=== PATIENT | male | born 1945 | race Two or more races ===

== ENCOUNTER 2020-04-04 21:39 | Inpatient (IN) | payer MEDICARE, OTHER ==
[~2020-04-04] VITALS: Ht 165.1 cm; Wt 72.6 kg
[2020-04-04] MEDS ORDERED: OLAN5TAB6 (23:19)
[2020-04-04] MEDS ORDERED: TEMAZEPAM 7.5 MG CAPSULE PO PRN (23:30)
[2020-04-04] MEDS ORDERED: MAGNESIUM HYDROXIDE 30 ML UDC PO PRN (23:30)
[2020-04-04] MEDS ORDERED: BLOOD SUGAR DIAGNOSTIC 1 EACH STRIP IN ONE (23:30)
[2020-04-04] MEDS ORDERED: LORAZEPAM 0.5 MG TABLET PO PRN (23:30)
[2020-04-04] MEDS ORDERED: ACETAMINOPHEN 325 MG TABLET PO PRN (23:30)
[2020-04-04] MEDS ORDERED: MAG HYDROX/AL HYDROX/SIMETH 30 ML UDC PO PRN (23:30)
[2020-04-04 23:52] VITALS: BP 128/78
--- NOTE | 2020-04-05 01:06 | NUR ---
ADMISSION NOTES: ADMITTED THIS 74Y/O MALE PATIENT ADMIT FROM [facility], ADMITTED TO [facility], DTS , PER HOLD DUE TO WANDRING THE STREETS SAYS HE WAS LOOKING FOR AN APARTMENT, UNABLE TO PROVIDE FOR HIS FOOD GROUP HOME OR CLOTHING ,UPON FACE TO FACE ASSESSMENT PATIENT IS A&O X 2 PARANOID , HYPERVERBAL, DISORGNIZED ,DISHELVED ,EASILY GETS AGITATED, DENIES SI /HI AT THIS TIME, PT. IS POOR HISTORIAN, POOR INSIGHT ,POOR JUDGEMENT , PT. REFUSED TO SIGNS ADMISSION CONSENT PAPERS , DUE TO MENTAL STATUS / CONFUSED, BOTH MD AWARE AND NOTIFIED OF THE ADMISSION, BELONGINGS CONTRABAND WERE DONE ,PT. RIGHTS DISCUSS BY MEDICAL SCREENER , PROVIDE THE PT. WITH HANDBOOK, AND MEDICATIONS GUIDE, ENVIRONMENTAL SAFETY CHECK DONE, ENCOURAGED PT. VERBALIZED ANY FEELING CONCERN TO STAFF, ORIENT TO UNIT POLICY, NO ACUTE DISTRESS NOTED,VITAL SIGNS WNL ,DENIES ANY PAIN AT THIS TIME,WILL CONTINUE TO MONITOR FOR Q15 SAFETY AND BEHAVIOR.
--- NOTE | 2020-04-05 05:51 | NUR ---
RN NOTES: PT. NEXT OF KIN NONE GIVEN , PT. NON GIVEN MEDICAL / PSYCH HISTORY AND LIST OF MEDICAL HISTORY. UN ABLE TO OBTAIN .
--- NOTE | 2020-04-05 06:05 | NUR ---
[facility] RN NOTES: PT. RESTING IN HIS ROOM, CALM NOTED AT THIS TIME . NO S/S OF DISTRESS NOTED . PT. CALM COOPERTIVE,NO CHANGE OF CONDITION NOTED ,AND NO BEHAVIOR PROBLEMS NOTED, ALL CARE NEEDS MET ANTICIPATED. WILL CONTINUE TO MONITOR FOR SAFETY BEHAVIOR, AND ENDORSE TO AM SHIFT FOR CONTINUITY OF CARE.
[2020-04-05 08:00] VITALS: BP 143/82
[2020-04-05 08:35] LABS: BILIRUBIN,TOTAL 0.4 mg/dL (0.2-1.0); CALCIUM, SERUM 7.6 mg/dL (8.5-10.1); CREATININE 0.8 mg/dL (0.6-1.3); POTASSIUM 3.4 mmol/L (3.5-5.1); TOTAL PROTEIN, SERUM 6.4 g/dL (6.4-8.2)
[2020-04-05] MEDS: Z GUARD REMEDY 2 OZ OINT TP SCH (08:36)
[2020-04-05] MEDS ORDERED: OLAN5TAB3 PO (09:30)
[2020-04-05] MEDS ORDERED: POTASSIUM CHLORIDE 20 MEQ TAB.PRT.SR PO ONE (12:30)
[2020-04-05 14:00] LABS: CHOLESTEROL 135 mg/dL (<200); HDL CHOLESTEROL 36 mg/dL (40-60); TRIGLYCERIDES 99 mg/dL (30-150)
[2020-04-05 14:01] LABS: LDL 90 mg/dL (0-99)
[2020-04-05 16:00] VITALS: BP 121/62
--- NOTE | 2020-04-05 16:26 | NUR ---
Initial Discharge Plan: Pt is currently homeless. Pt states that he would like to be placed in a nursing facility. SW will work with the pt and the MD regarding appropriate discharge planning. SW will form a safe and proper discharge.
[2020-04-05 19:37] VITALS: BP 107/51
[2020-04-05] MEDS: OLANZAPINE 5 MG/TAB.RAPDIS PO SCH (21:15)
[2020-04-05 22:00] VITALS: BP 110/68
--- NOTE | 2020-04-06 06:12 | NUR ---
[facility]PS RN NOTES: PT. RESTING IN HIS ROOM, NO S/S OF DISTRESS NOTED . PT. CALM COOPERTIVE,NO CHANGE OF CONDITION NOTED ,AND NO BEHAVIOR PROBLEMS NOTED, ALL CARE NEEDS MET ANTICIPATED. WILL CONTINUE TO MONITOR FOR SAFETY BEHAVIOR, AND ENDORSE TO AM SHIFT FOR CONTINUITY OF CARE.
[2020-04-06 07:41] LABS: CALCIUM, SERUM 8.4 mg/dL (8.5-10.1); CREATININE 0.8 mg/dL (0.6-1.3); POTASSIUM 3.6 mmol/L (3.5-5.1)
[2020-04-06 08:00] VITALS: BP 110/62
[2020-04-06] MEDS: Z GUARD REMEDY 2 OZ OINT TP SCH (08:04)
--- NOTE | 2020-04-06 09:49 | NUR ---
WOUND CARE CONSULT: PT PRESENTS WITH RASH TO LOWER BUTTOCKS, PRESENT ON ADMISSION. RECOMMENDATIONS MADE FOR SKIN CARE AND PROTECTION. DISCUSSED WITH NURSING STAFF. WILL SEE PRN. IN AGREEMENT WITH PLAN OF CARE. CURRENT CHET SCORE IS 20.
--- NOTE | 2020-04-06 11:57 | NUR ---
Substance Abuse Intervention: JAROD conducted a substance abuse intervention with the pt due to his methamphetamine abuse.
[2020-04-06 16:00] VITALS: BP 144/78
[2020-04-06] MEDS: CLOTRIMAZOLE 1% 15 GM TUBE TP SCH (16:10)
[2020-04-06 20:05] VITALS: BP 130/72
[2020-04-06] MEDS: OLANZAPINE 5 MG/TAB.RAPDIS PO SCH (21:05)
[2020-04-07 08:00] VITALS: BP 157/99
[2020-04-07] MEDS: CLOTRIMAZOLE 1% 15 GM TUBE TP SCH ×2 (08:26→16:41)
[2020-04-07] MEDS: Z GUARD REMEDY 2 OZ OINT TP SCH (08:26)
[2020-04-07 16:00] VITALS: BP 145/91
[2020-04-07 20:10] VITALS: BP 141/79
[2020-04-07] MEDS: OLANZAPINE 5 MG/TAB.RAPDIS PO SCH (21:30)
[2020-04-08 08:00] VITALS: BP 137/69
[2020-04-08] MEDS: Z GUARD REMEDY 2 OZ OINT TP SCH (08:19)
[2020-04-08] MEDS: CLOTRIMAZOLE 1% 15 GM TUBE TP SCH ×2 (08:19→16:28)
--- NOTE | 2020-04-08 10:06 | NUR ---
SNF Referral: JAROD faxed a referral to [facility] with attention to Yla to the fax number: [phone].
--- NOTE | 2020-04-08 14:52 | NUR ---
SNF Contact: SW received a call from Inge ([phone]) from [facility] and she stated that the pt was accepted to their facility.
[2020-04-08 16:00] VITALS: BP 145/82
--- NOTE | 2020-04-08 19:15 | NUR ---
[facility] RN OPENING NOTES: RECEIVED PATIENT ASLEEP IN BED.
--- NOTE | 2020-04-08 19:30 | NUR ---
PATIENT IS AWAKE NOW, WALKING IN THE HALLWAY WITH STEADY GAIT, TALKING TO THE STAFF. NO S/S OF DISTRESS NOTED. NO COMPLAIN OF PAIN. PATIENT ASKED FOR SNACKS, GIVEN BY THE CHARGE NURSE. PATIENT IS ALERT AND ORIENTED X2-3. WILL CONTINUE TO MONITOR.
[2020-04-08 20:08] VITALS: BP 141/81
--- NOTE | 2020-04-08 20:08 | NUR ---
PATIENT WENT BACK TO BED. BED SIDERAILS UP X2 FOR SAFETY. EDUCATED PATIENT ON THE USE OF CALL FONTANEZ. BED IN LOCKED AND LOW POSITION.
[2020-04-08] MEDS: OLANZAPINE 5 MG/TAB.RAPDIS PO SCH (21:37)
--- NOTE | 2020-04-09 06:25 | NUR ---
CLOSING NOTES: PATIENT IS ASLEEP IN BED. NO S/S OF DISTRESS NOTED. BED IN LOWEST AND LOCKED POSITION.V/S WNL. PATIENT IS MED COMPLIANT.
[2020-04-09 08:00] VITALS: BP 155/89
[2020-04-09] MEDS: CLOTRIMAZOLE 1% 15 GM TUBE TP SCH ×2 (08:19→17:23)
[2020-04-09] MEDS: Z GUARD REMEDY 2 OZ OINT TP SCH (08:19)
[2020-04-09 16:00] VITALS: BP 126/75
[2020-04-09 20:12] VITALS: BP 120/72
[2020-04-09] MEDS: OLANZAPINE 5 MG/TAB.RAPDIS PO SCH (22:29)
--- NOTE | 2020-04-10 06:28 | NUR ---
[facility]PS RN CLOSING NOTES: PT WAS MED COMPLIANT THIS SHIFT. SLEPT FOR 8 HR. WAS CALM AND COOPERATIVE. NO BEHAVIORAL ISSUES THIS SHIFT. NO S/S OF DISTRESS. CURRENTLY LAYING ON BED SLEEPING, RESPIRATION EVEN AND UNLABORED WITH EQUAL RISE AND FALL OF THE CHEST ON ROOM AIR. WILL CONTINUE TO MONITOR AND ENDORSE TO AM SHIFT.
[2020-04-10] MEDS: CLOTRIMAZOLE 1% 15 GM TUBE TP SCH ×2 (07:28→17:02)
[2020-04-10] MEDS: Z GUARD REMEDY 2 OZ OINT TP SCH (07:29)
[2020-04-10 08:00] VITALS: BP 139/74
[2020-04-10 16:00] VITALS: BP 127/74
[2020-04-10 20:41] VITALS: BP 128/67
[2020-04-10] MEDS: OLANZAPINE 5 MG/TAB.RAPDIS PO SCH (21:33)
--- NOTE | 2020-04-11 06:37 | NUR ---
GPS RN CLOSING NOTES: PT LAYING ON BED AWAKE, A/O, CALM AND COOPERATIVE AND MED COMPLIANT THIS SHIFT. SLEPT FOR 7 HR. WEEKLY SKIN ASSESSMENT DONE AND PICTURES PLACED IN CHART. NO NEW SKIN ISSUES WERE NOTED. NO BEHAVIORAL ISSUES THIS SHIFT. NO S/S OF DISTRESS AT TIS TIME. RESPIRATION EVEN AND UNLABORED WITH EQUAL RISE AND FALL OF THE CHEST ON ROOM AIR. ALL PATIENT CARE NEEDS MET ANTICIPATED. WILL CONTINUE TO MONITOR AND ENDORSE TO AM SHIFT.
[2020-04-11 08:00] VITALS: BP 134/87
[2020-04-11] MEDS: CLOTRIMAZOLE 1% 15 GM TUBE TP SCH ×2 (08:17→17:20)
[2020-04-11] MEDS: Z GUARD REMEDY 2 OZ OINT TP PRN ×2 (08:18→08:19)
[2020-04-11] MEDS: Z GUARD REMEDY 2 OZ OINT TP SCH (08:19)
[2020-04-11 16:00] VITALS: BP 124/67
[2020-04-11 19:48] VITALS: BP 129/67
[2020-04-11] MEDS: OLANZAPINE 5 MG/TAB.RAPDIS PO SCH (21:25)
[2020-04-12 08:00] VITALS: BP 118/64
[2020-04-12] MEDS: CLOTRIMAZOLE 1% 15 GM TUBE TP SCH ×2 (08:33→17:32)
[2020-04-12] MEDS: Z GUARD REMEDY 2 OZ OINT TP PRN (08:33)
[2020-04-12] MEDS: Z GUARD REMEDY 2 OZ OINT TP SCH (09:27)
[2020-04-12 16:00] VITALS: BP 131/56
[2020-04-12 19:39] VITALS: BP 133/75
[2020-04-12] MEDS: OLANZAPINE 5 MG/TAB.RAPDIS PO SCH (21:18)
[2020-04-13 08:00] VITALS: BP 143/88
[2020-04-13] MEDS: CLOTRIMAZOLE 1% 15 GM TUBE TP SCH ×3 (09:00→17:11)
[2020-04-13] MEDS: Z GUARD REMEDY 2 OZ OINT TP SCH (09:43)
[2020-04-13 16:00] VITALS: BP 144/64
--- NOTE | 2020-04-13 16:13 | NUR ---
GPS RN NOTE RECEIVED PT WALKING AROUND IN HALLWAY, PT WAS MUMBLING TO SELF, A/O X2, DENIES PAIN, NO DISTRESS NOTED, DENIES SI/HI, ALL NEEDS MET AT THIS TIME, WILL CONTINUE TO MONITOR Q15MIN FOR SAFETY AND BEHAVIOR.
[2020-04-13 20:34] VITALS: BP 140/67
[2020-04-13] MEDS: OLANZAPINE 5 MG/TAB.RAPDIS PO SCH (21:25)
[2020-04-14 08:00] VITALS: BP 156/77
[2020-04-14] MEDS: Z GUARD REMEDY 2 OZ OINT TP SCH (09:04)
[2020-04-14] MEDS: CLOTRIMAZOLE 1% 15 GM TUBE TP SCH ×2 (09:04→17:01)
[2020-04-14 16:00] VITALS: BP 138/69
[2020-04-14 19:47] VITALS: BP 118/62
[2020-04-14 19:52] VITALS: BP 118/62
[2020-04-14] MEDS: OLANZAPINE 5 MG/TAB.RAPDIS PO SCH (21:30)
[2020-04-15 08:00] VITALS: BP 127/62
--- NOTE | 2020-04-15 08:04 | NUR ---
SW Discharge: Patient will be discharged to custodial facility to [address] [address]; ) via Ambulance transportation at 11AM. Director Oncology spoke with Aj, Truck Striker at [facility]; ([phone]), who stated patient will be accepted at facility today. Patient is alert and oriented x3-4, and is not able to plan for self-care at this time, but is willing to accept care provided for him at the facility. Patient denies any suicidal or homicidal ideations. Patient is aware and agreeable with discharge plans. Patient does not have any family members at this moment. Patient will continue to follow-up with her (Psychiatrist) Dr. Loera and (Senior National Account Manager) Dr. Perez at [address] [address]; ). Patient was provided referrals to the following substance abuse programs: [facility] Self[facility] ([phone]); [facility] [address] [place] [address] ([phone]); [address] [address] ([phone]); [facility] ([phone]); [facility] ([phone]); [facility] ([phone]); [facility] ([phone]). Patient presents with euthymic mood and congruent affect. Patient signed the homeless waiver form and a copy was placed in the chart. Nursing completed homeless check list.
[2020-04-15] MEDS: CLOTRIMAZOLE 1% 15 GM TUBE TP SCH (09:37)
[2020-04-15] MEDS: Z GUARD REMEDY 2 OZ OINT TP SCH (09:37)
--- NOTE | 2020-04-15 11:30 | NUR ---
GPS/RN-DISCHARGE NOTES RECEIVED DISCHARGE ORDER FROM WITH ORDERS. ASHA ORTEGA ALSO MADE AWARE OF PATIENT DISCHARGE. PATIENT WAS DISCHARGE TO [facility].REPORT WAS GIVEN TO LARRY ( CIGAR PACKER) PATIENT DID NOT VERBALIZE SI/HI,DENIES VISUAL/AUDITORY HALLUCINATIONS AT THE TIME OF DISCHARGE. PATIENT LEFT THE UNIT ALERT ORIENTED X4 AMBULATORY STEADY GAIT. HRIS MANAGER BY AMBULANCE VIA GURNEY WITH TWO STAFF ASSIST,ALL BELONGINGS WAS GIVEN BACK TO THE PATIENT. MASK WAS GIVEN TO THE PATIENT. NO FAMILY TO NOTIFY UPON DISCHARGE.
== END 2020-04-15 11:30 | DRG 885 ==
LOC: GPS 22:57
PROVIDERS: ADMIT Psychiatry & Neurology Psychiatry
DX: F29 Unspecified psychosis not due to a substance or known physiological condition (principal); E87.6 Hypokalemia; F03.90 Unspecified dementia, unspecified severity, without behavioral disturbance, psychotic disturbance, mood disturbance, and anxiety; R74.01 Elevation of levels of liver transaminase levels
CPT/HCPCS: 36415; 80048-TC; 80053-TC; 80061-TC; 82962-TC; 87081-TC